=== PATIENT | female | born 1990 | race Caucasian/White ===

== ENCOUNTER 2019-03-11 09:12 | Emergency (ER) | payer MEDICAID ==
[~2019-03-11] VITALS: Ht 167.6 cm; Wt 70.3 kg
[2019-03-11 09:17] VITALS: BP 101/61; Ht 167.6 cm; Wt 70.3 kg
== END 2019-03-11 11:30 | disposition home or self-care (01) ==
LOC: ED 09:12
DX: R07.89 Other chest pain (principal)